=== PATIENT | female | born 1955 | race American Indian/Alaskan Native ===

== ENCOUNTER 2017-03-29 07:30 | Inpatient (IN) | payer MEDICARE, OTHER ==
[2017-04-05] MEDS ORDERED: APRESOLINE IV PRN (06:32)
[2017-04-05] MEDS ORDERED: REGLAN IV PRN (06:32)
[2017-04-05] MEDS ORDERED: ANCEF/STERILE WATER 2 GM/20 ML 2 GM/20 ML SYRINGE IV NR (07:00)
[2017-04-05] MEDS ORDERED: FLAGYL 500 MG/100 ML 500 MG/100 ML BAG IV NR (07:00)
[2017-04-05] MEDS ORDERED: LOVENOX SUB-Q NR (07:00)
[2017-04-05] MEDS ORDERED: TRANSDERM-SCOP TD SCH (07:00)
[2017-04-05] MEDS ORDERED: NACL BACTERIOSTATIC INFILTRATI ONE (08:18)
[2017-04-05] MEDS ORDERED: PEPCID IV NR (09:05)
--- NOTE | 2017-04-05 09:07 | Anesthesia Day of Surgery ---
Anesthesia Day of Surgery - Day of Surgery Patient Examined: Yes Patient H&P Reviewed: Yes Patient is NPO: Yes
--- NOTE | 2017-04-05 09:07 | Anesthesia Consultation ---
Anesthesia Consult and Med Hx Date of service: 04/05/17 - Airway Anesthetic Teeth Evaluation: Good ROM Head & Neck: Adequate Mental/Hyoid Distance: Adequate Mallampati Class: Class II Intubation Access Assessment: Possibly Difficult - Pulmonary Exam CTA: Yes - Cardiac Exam Cardiac Exam: RRR - Pre-Operative Health Status ASA Pre-Surgery Classification: ASA3 Proposed Anesthetic Plan: General - Pulmonary Hx Smoking: Yes (former, quit in ) Hx Sleep Apnea: Yes (has CPAP) - Cardiovascular System Hx Hypertension: Yes (since age 40) - Central Nervous System Hx Neuromuscular Disorder: Yes (RA, OA and degen, disk dz.) Hx Back Pain: Yes Hx Psychiatric Problems: Yes (depression) - Gastrointestinal Hx Gastroesophageal Reflux Disease: Yes (on meds) - Endocrine Hx Renal Disease: Yes (stage 2) Hx Non-Insulin Dependent Diabetes: Yes Hx Hypothyroidism: Yes (half of thyroid removed) - Other Systems Hx Alcohol Use: Yes (H/O abuse, quit 2 months ago) Hx Cancer: No Hx Obesity: Yes - Additional Comments Anesthesia Medical History Comments: Enlarged heart, sees a doxc for it. Has a collection of blood on liver. 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 very nervous.
[2017-04-05] MEDS ORDERED: XYLOCAINE MPF 2% ONE (09:18)
[2017-04-05] MEDS ORDERED: ZEMURON IV ONE (09:18)
[2017-04-05] MEDS ORDERED: SUBLIMAZE ONE ×2 (09:18→10:49)
[2017-04-05] MEDS ORDERED: DIPRIVAN 10 MG/ML IV ONE (09:18)
[2017-04-05] MEDS ORDERED: NACL 0.9% IR ONE ×2 (09:29)
[2017-04-05] MEDS ORDERED: XYLOCAINE 1% 20 mL INFILTRATI ONE (09:29)
[2017-04-05] MEDS ORDERED: MARCAINE-EPI 0.5%-1:200,000 INFILTRATI ONE (09:29)
[2017-04-05] MEDS ORDERED: VERSED IV NR (10:00)
[2017-04-05] MEDS ORDERED: NACL 0.9% 1000 ML 1,000 ML IV SCH (10:00)
[2017-04-05] MEDS ORDERED: XYLOCAINE 1% 20 mL ONE (10:02)
[2017-04-05] MEDS ORDERED: MARCAINE-EPI/PF 0.5%-1:200,000 INFILTRATI ONE (10:02)
[2017-04-05] MEDS ORDERED: NACL 0.9% 1000 ML 1,000 ML ONE (10:24)
[2017-04-05] MEDS ORDERED: ROBINUL ONE ×2 (10:40→11:25)
[2017-04-05] MEDS ORDERED: ePHEDrine SULFATE ONE (10:44)
[2017-04-05] MEDS ORDERED: NEOSTIGMINE ONE (11:25)
[2017-04-05] MEDS ORDERED: DEMEROL IV PRN (11:42)
[2017-04-05] MEDS: DILAUDID IV PRN ×4 (11:55→20:06)
[2017-04-05] MEDS ORDERED: DILAUDID ONE (11:56)
[2017-04-05] MEDS ORDERED: TORADOL IV PRN (11:57)
[2017-04-05] MEDS ORDERED: ZOFRAN IV PRN (11:57)
[2017-04-05] MEDS ORDERED: NEO SYNEPHRINE/NS Syringe(OR USE) IV ONE (12:00)
[2017-04-05] MEDS ORDERED: TORADOL ONE (12:01)
--- NOTE | 2017-04-05 12:09 | Post Anesthesia Evaluation ---
- Post Anesthesia Evaluation Patient Participated: Yes Airway Patent: Yes Stable Respiratory Function: Yes Nausea/Vomiting: No Temp > 96.8F: Yes Pain Manageable: Yes Adequeate Hydration: Yes Anesthesia Complications: No
[2017-04-05] MEDS: LACTATED RINGERS 1,000 ML IV SCH ×2 (12:30→17:29)
[2017-04-05] MEDS: ZOFRAN IV PRN ×2 (13:36→20:48)
[2017-04-05] MEDS: MYLICON PO PRN (15:47)
[2017-04-05] MEDS: LOVENOX SUB-Q SCH (15:48)
[2017-04-06] MEDS: DILAUDID IV PRN ×4 (00:03→12:30)
[2017-04-06] MEDS: LACTATED RINGERS 1,000 ML IV SCH ×2 (00:07→09:06)
--- NOTE | 2017-04-06 04:05 | Operative Report ---
PREOPERATIVE DIAGNOSES: 1. Morbid obesity. 2. Hypertension. 3. History of gastroesophageal reflux disease. 4. History of Mason fundoplication. 5. History of laparoscopic cholecystectomy. 6. History of fatty liver disease. 7. Enlarged heart. 8. Irregular heartbeat. 9. High cholesterol. POSTOPERATIVE DIAGNOSES: 1. Morbid obesity. 2. Hypertension. 3. History of gastroesophageal reflux disease. 4. History of Mason fundoplication. 5. History of laparoscopic cholecystectomy. 6. History of fatty liver disease. 7. Enlarged heart. 8. Irregular heartbeat. 9. High cholesterol. PROCEDURE: Laparoscopic sleeve gastrectomy. SURGEON: Jeremías Valle MD FACING MACHINE OPERATOR: Solo Sevilla. ANESTHESIA: General. DESCRIPTION OF PROCEDURE: The patient was placed on the operating table in the dorsal supine position. Following satisfactory induction of general anesthesia, the abdomen was prepped using Hibiclens solution and scrubbed and draped in a sterile fashion. Then using a sharp skin knife, a skin incision was made at the umbilicus. A Veress needle was placed for insufflation of CO2 and after adequate insufflation of CO2 was accomplished inside the abdominal cavity, a 15 mm trocar was then placed for inspection of the intra-abdominal contents in the umbilicus. Several of the 5 mm trocars were also placed inside the abdominal cavity in preparation for the laparoscopic sleeve gastrectomy. The liver retractor was used to elicit the liver and several of the adhesions in the patient's previous abdominal surgery were taken down. The patient had a previous laparoscopic Mason fundoplication and it was immediately noted that the tissue was quite fragile and ( ) quite easily cleared. We therefore decided that we would not have the Mason fundoplication done because that would probably cause her to increase her reflux symptoms and she would then need to have a gastric bypass, which her tissues were not suitable for. We, therefore, decided to leave the fundoplication in place and, therefore, began the sleeve operation. Using the hook electrocautery, all the adhesions were taken down, freeing up the fundoplication as much as possible from the spleen. The LigaSure was then used to get into the lesser sac, taken down the greater omentum from the greater curvature of the stomach. This is accomplished all the way to the spleen and up to the Mason fundoplication and all the way down to approximately 4 cm proximal to the pylorus. Following this, a #40 bougie was placed inside the patient's stomach. Using the sizer and then using a green load, I left the first stapler across the stomach using the bougie as a guide up to the level of the incisura. We took great care to avoid injury or any possible impingement ( ) to prevent any postoperative adhesions or any postoperative stricture at this area. We then continued the firing, and as discussed, the patient has previous surgery, her stomach was quite thick. We continued to use the green staple load throughout. The green staple load was used up to the level of the fundoplication, where we then just took a point, just angled our staple line out to leave the fundoplication intact. After the sleeve gastrectomy was performed, the intra-abdominal pressure was then lowered to 10 mmHg to identify any bleeding at the staple line. All bleeding was controlled using hook electrocautery and then Tisseel sealant was then placed on the staple line itself. The bougie was removed and the bed was flattened and the gastric remnant stomach was then grasped from the trocar from the umbilicus and brought out through the umbilical incision. The abdominal cavity was then desufflated. The fascial defect at the umbilicus was closed using a running suture of #1 PDS and the skin was closed using intermittent subdermal sutures of 4-0 Monocryl. Steri-Strips were applied to the wound. The patient tolerated the procedure well and was sent to recovery room in satisfactory condition. JOB# [id number] SENTHIL/ERI
[2017-04-06] MEDS: ZOFRAN IV PRN (06:06)
[2017-04-06 07:46] LABS: Bilirubin,Urine NEG (Negative); Blood,Urine NEG (Negative); Ketones,Urine TR mg/dL (Negative); Leukocyte Esterase,Urine MOD (Negative); Nitrite,Urine NEG (Negative); Urobilinogen,Urine < 2.0 mg/dL (<2.0)
[2017-04-06] MEDS: LOVENOX SUB-Q SCH (09:06)
[2017-04-06 09:42] LABS: Basophils % (Auto) 0.3 % (0.0-1.8); Eosinophils % (Auto) 1.5 % (0.0-4.3); Hematocrit 33.6 % (30.3-42.9); Hemoglobin 10.6 gm/dl (10.1-14.3); Mean Corpuscular HGB Conc 31 % (30-34); Mean Corpuscular Hemoglobin 29 pg (28-32); Mean Corpuscular Volume 92 fl (79-97); Platelet Count 291 K/mm3 (140-440); Red Blood Count 3.67 M/mm3 (3.65-5.03); Red Cell Distribution Width 15.1 % (13.2-15.2); White Blood Count 7.1 K/mm3 (4.5-11.0)
[2017-04-06 09:52] LABS: Anion Gap 15 mmol/L; Blood Urea Nitrogen 14 mg/dL (7-17); Calcium 8.3 mg/dL (8.4-10.2); Carbon Dioxide 26 mmol/L (22-30); Chloride 104.8 mmol/L (98-107); Glucose 112 mg/dL (65-100); Potassium 3.7 mmol/L (3.6-5.0); Sodium 142 mmol/L (137-145)
[2017-04-06] MEDS: MYLICON PO PRN (13:05)
[2017-04-06] MEDS ORDERED: TYLENOL PO PRN (14:07)
[2017-04-06 16:15] VITALS: BP 150/82
--- NOTE | 2017-04-06 16:17 | Discharge Summary ---
Providers - Providers Date of Admission: 04/05/17 07:27 Date of discharge: 04/06/17 Attending physician: KAT MEDINA Primary care physician: BRITTANEY PATTERSON MD Hospitalization Condition: Good Procedures: laparoscopic sleeve gastrectomy Hospital course: 62 y.o. female admitted to the hospital for laparoscopic sleeve gastrectomy. She tolerated the procedure well. On POD 1 she tolerated clears and ambulated. She had burning in her right calf. A right LE venous duplex showed no DVT in her leg. Her pain was controlled. She was discharged home. Disposition: DC-30 STILL A PATIENT Core Measure Documentation - Palliative Care Palliative Care/ Comfort Measures: Not Applicable - Core Measures Any of the following diagnoses?: none Exam - Physical Exam Narrative exam: VSS Gen: A+Ox3 Abd: soft tender at incision sites. Dressings: blood tinged. no rebound no guarding ext: no clubbing , no edema. no erythema. non tender on palpation - Constitutional Vitals: Temp Pulse Resp BP Pulse Ox 98 F 78 18 134/74 97 04/06/17 12:00 04/06/17 15:49 04/06/17 15:49 04/06/17 12:00 04/06/17 15:49 Plan Activity: other (no lifting >15lbs for 6 weeks ) Diet: clear liquids (sugar free ) Wound: keep clean and dry Additional Instructions: follow up for wound care appointment Follow up with: BRITTANEY PATTERSON MD [Primary Care Provider] - 7 Days
--- NOTE | 2017-04-07 08:25 | Vascular Lab Report ---
Right Lower Extremity Venous Duplex Study: Reason for Exam: Pain of the right lower extremity. Comments on the Right: All veins visualized are freely compressible without evidence of internal echogenicity. Flow is spontaneous and phasic throughout. No evidence of acute or chronic thrombus is seen in any of the vessels visualized. Soft tissue changes with be consistent with knee effusion. Comments on the Left: A limited duplex study was done of the proximal veins of the left lower extremity. All veins visualized are freely compressible without evidence of internal echogenicity. Flow is spontaneous and phasic throughout. No evidence of acute or chronic thrombus is seen in any of the vessels visualized. Impression: No evidence of acute or chronic deep venous thrombosis in the right lower extremity.
== END 2017-04-06 17:30 | disposition home or self-care (01) | DRG 621 ==
LOC: 3A 04-05 07:27 → 3B-SURG 04-05 12:02
PROVIDERS: ADMIT Specialist; ATTEND Specialist
PROC: 0DB64Z3 Excision of Stomach, Percutaneous Endoscopic Approach, Vertical (ICD-10-PCS; principal; 2017-04-05)
DX: E66.01 Morbid (severe) obesity due to excess calories (principal); I49.9 Cardiac arrhythmia, unspecified; I51.7 Cardiomegaly; N18.2 Chronic kidney disease, stage 2 (mild); I12.9 Hypertensive chronic kidney disease with stage 1 through stage 4 chronic kidney disease, or unspecified chronic kidney disease; M06.9 Rheumatoid arthritis, unspecified; K21.9 Gastro-esophageal reflux disease without esophagitis; Z90.49 Acquired absence of other specified parts of digestive tract; Z90.710 Acquired absence of both cervix and uterus; Z88.6 Allergy status to analgesic agent; Z83.3 Family history of diabetes mellitus; Z84.89 Family history of other specified conditions
CPT/HCPCS: 36415; 80048; 81001; 82962; 85025; 88307; 94660; A4217; C9250; J0690; J1170; J1650; J1885; J2250; J2370; J2405; J2704; J2710; J3010; J7030; J7120

== ENCOUNTER 2017-03-31 06:23 | Day surgery (SDC) | payer MEDICARE, OTHER ==
--- NOTE | 2017-03-31 08:03 | Anesthesia Consultation ---
Anesthesia Consult and Med Hx Date of service: 03/31/17 - Airway Anesthetic Teeth Evaluation: Good ROM Head & Neck: Adequate Mental/Hyoid Distance: Adequate Mallampati Class: Class II Intubation Access Assessment: Probably Good - Pulmonary Exam CTA: Yes - Cardiac Exam Cardiac Exam: RRR - Pre-Operative Health Status ASA Pre-Surgery Classification: ASA2 Proposed Anesthetic Plan: MAC - Other Systems Hx Obesity: Yes
--- NOTE | 2017-03-31 08:49 | Anesthesia Day of Surgery ---
Anesthesia Day of Surgery - Day of Surgery Patient Examined: Yes Patient H&P Reviewed: Yes Patient is NPO: Yes
[2017-03-31] MEDS ORDERED: NACL 0.9% 1000 ML 1,000 ML IV SCH (09:00)
[2017-03-31] MEDS ORDERED: XYLOCAINE MPF 2% ONE (09:00)
--- NOTE | 2017-03-31 09:10 | Operative Report ---
Operative Report Operative Report: OPERATIVE REPORT - EGD DATE SURGERY: Upper endoscopy. SURGEON: Tristen Degroot M.D. TRAVEL COTA: [place] PRE OP DX: dyspepsia POST OP DX: Small hiatal hernia TYPE OF ANESTHESIA: MAC. ESTIMATED BLOOD LOSS: None. COMPLICATIONS: None. SPECIMENS REMOVED: None. FINDINGS: 1. Small hiatal hernia. 2. Otherwise, normal esophagus, stomach and first portion of duodenum. INDICATIONS:INDICATION FOR PROCEDURE: Patient is a 62-year-old female with a long history of morbid obesity and recent dyspepsia. PROCEDURE DETAILS: After consent was reviewed, patient was taken back to the operating room where patient was placed in the left lateral decubitus position and a bite block was placed in the mouth. After a time-out was called, MAC anesthesia was initiated. I then passed the endoscope into her oropharynx, into her esophagus, visualized the entire esophagus, which was all within normal limits. I then visualized the stomach and the first portion of the duodenum and there were no abnormalities I could clearly visualize. I then retroflexed the scope in the stomach and visualized the hiatus and I could see a small hiatal hernia. I then desufflated the stomach and removed the endoscope. Patient tolerated procedure well and was transferred to recovery room in good and stable condition.
--- NOTE | 2017-03-31 09:14 | Discharge Summary ---
Providers - Providers Attending physician: KAT VALLE Primary care physician: FARHAT BENJAMIN Hospitalization Reason for admission: EGD Procedures: EGD Hospital course: 62 F presented to endoscopy for EGD. She underwent the procedure without issue. She will follow up with Dr. Valel next week for her surgery. Disposition: DC-01 TO HOME OR SELFCARE Core Measure Documentation - Palliative Care Palliative Care/ Comfort Measures: Not Applicable - Core Measures Any of the following diagnoses?: none Exam - Physical Exam Narrative exam: no change from prior - Constitutional Vitals: Temp Pulse Resp BP Pulse Ox 98.3 F 66 23 119/74 97 03/31/17 08:37 03/31/17 08:37 03/31/17 08:37 03/31/17 08:37 03/31/17 08:37 Plan Activity: no restrictions Diet: clear liquids, other (high protien, low carb ) Additional Instructions: Follow up with Dr. Valle next week for surgery. Follow up with: FARHAT BENJAMIN MD [Primary Care Provider] - 7 Days
--- NOTE | 2017-03-31 09:33 | Post Anesthesia Evaluation ---
- Post Anesthesia Evaluation Patient Participated: Yes Airway Patent: Yes Stable Respiratory Function: Yes Nausea/Vomiting: No Temp > 96.8F: Yes Pain Manageable: Yes Adequeate Hydration: Yes Anesthesia Complications: No Block Receding Appropriately: Not Applicable Patient on Ventilator: No
[2017-03-31 09:57] VITALS: BP 115/72
[2017-03-31] MEDS ORDERED: DIPRIVAN 10 MG/ML IV ONE (11:17)
== END 2017-03-31 06:24 | disposition home or self-care (01) ==
LOC: GIO 06:23
PROVIDERS: ATTEND Specialist
DX: K44.9 Diaphragmatic hernia without obstruction or gangrene (principal); K21.9 Gastro-esophageal reflux disease without esophagitis; E78.00 Pure hypercholesterolemia, unspecified; F32.9 Major depressive disorder, single episode, unspecified; E03.9 Hypothyroidism, unspecified; G47.30 Sleep apnea, unspecified; M06.9 Rheumatoid arthritis, unspecified; M19.90 Unspecified osteoarthritis, unspecified site; F41.9 Anxiety disorder, unspecified; N18.2 Chronic kidney disease, stage 2 (mild); E11.22 Type 2 diabetes mellitus with diabetic chronic kidney disease; I12.9 Hypertensive chronic kidney disease with stage 1 through stage 4 chronic kidney disease, or unspecified chronic kidney disease; Z90.710 Acquired absence of both cervix and uterus; Z98.890 Other specified postprocedural states; Z83.3 Family history of diabetes mellitus; Z87.891 Personal history of nicotine dependence; Z88.6 Allergy status to analgesic agent; E66.01 Morbid (severe) obesity due to excess calories; Z68.35 Body mass index [BMI] 35.0-35.9, adult
CPT/HCPCS: 43235; J2704; J7030